=== PATIENT | female | born 1980 | race Caucasian/White ===

== ENCOUNTER 2017-08-24 16:39 | Emergency (ER) | payer BC, OTHER ==
--- NOTE | 2017-08-24 17:45 | EDM.PDOC ---
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 [place], says it feels like "my heart is pounding in my chest" and "my fingers are in my head" HR 77 despite c/o palpitations EKG with SR [address] changes began 10a yesterday Generalized Pain Score (Numeric/FACES): 3 - Related Data Allergies Allergy/AdvReac Type Severity Reaction Status Date / Time cephalexin monohydrate Allergy Rash Verified 08/24/17 17:05 [From Keflex] Home Meds: Home Meds Acetaminophen [Tylenol Extra Strength] 1,000 mg PO Q4HR PRN 07/12/15 [History] Cholecalciferol (Vitamin D3) [Vitamin D3] 10,000 unit PO DAILY 07/12/15 [History ] Cyanocobalamin (Vitamin B12) [Vitamin B12] 1,000 mcg PO DAILY 07/12/15 [History] Ibuprofen [Motrin] 800 mg PO QID PRN 07/12/15 [History] Milnacipran HCl [Savella] 12.5 mg PO BID 07/12/15 [History] Multivitamin [Multivitamins] 1 each PO DAILY 07/12/15 [History] Thyroid [Sneads Thyroid] 180 mg PO DAILY 07/12/15 [History] Tolterodine [Detrol LA 24 Hr] 2 mg PO DAILY 07/12/15 [History] Vit B Cmplx 3/Fa/Vit C/Biotin [Brionna-Amee Rx Tablet] 1 each PO DAILY 07/12/15 [ History] Past Medical History Other Cardiovascular History: 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 Musculoskeletal History: RT KNEE PAIN Psychiatric History: Reports: Anxiety Endocrine/Metabolic History: Reports: Hypothyroidism - Past Surgical History HEENT Surgical History: Reports: Tonsillectomy GI Surgical History: Reports: Cholecystectomy, Other (See Below) Social & Family History - Family History Family Medical History: Noncontributory - Tobacco Use Smoking Status *Q: Never Smoker Second Hand Smoke Exposure: No - Caffeine Use Caffeine Use: Reports: None - Recreational Drug Use Recreational Drug Use: No ED ROS GENERAL - Review of Systems Review Of Systems: See Below Constitutional: Reports: Fatigue, Other (did not get flu vax). Denies: Fever, Chills HEENT: Reports: No Symptoms Respiratory: Reports: No Symptoms Cardiovascular: Reports: Palpitations Endocrine: Reports: No Symptoms GI/Abdominal: Reports: No Symptoms : Reports: No Symptoms Musculoskeletal: Reports: No Symptoms Skin: Reports: No Symptoms Neurological: Reports: No Symptoms Psychiatric: Reports: No Symptoms Hematologic/Lymphatic: Reports: No Symptoms Immunologic: Reports: No Symptoms ED EXAM, GENERAL - Physical Exam Exam: See Below Exam Limited By: No Limitations General Appearance: Alert, WD/WN, No Apparent Distress, Other (pleasant, alert, nontoxic, appears tired) Ears: Normal External Exam, Normal Canal, Hearing Grossly Normal Nose: Normal Inspection, Normal Mucosa, No Blood Throat/Mouth: Normal Inspection, Normal Lips, Normal Teeth, Normal Gums, Normal Oropharynx, Normal Voice, No Airway Compromise Head: Atraumatic, Normocephalic Neck: Normal Inspection, Supple, Non-Tender, Full Range of Motion, Other ( thyroid wnl) Respiratory/Chest: No Respiratory Distress, Lungs Clear, Normal Breath Sounds, No Accessory Muscle Use, Chest Non-Tender Cardiovascular: Regular Rate, Rhythm, No Edema, No Gallop, No JVD, No Murmur, No Rub GI/Abdominal: Soft, Non-Tender, No Distention, No Mass, Other (obese) Back Exam: Normal Inspection, Full Range of Motion, NT Extremities: Other (trace edema b/l) Neurological: Alert, Oriented, CN II-XII Intact, Normal Cognition, No Motor/ Sensory Deficits Psychiatric: Normal Affect, Normal Mood Skin Exam: Warm, Dry, Intact, Normal Color, No Rash Lymphatic: No Adenopathy Course - Vital Signs Last Recorded V/S: Last Vital Signs Temp 36.6 C 08/24/17 16:45 Pulse 75 08/24/17 16:45 Resp 16 08/24/17 16:45 BP 118/52 L 08/24/17 17:30 Pulse Ox 100 08/24/17 16:45 - Orders/Labs/Meds Orders: Active Orders 24 hr Category Date Time Status EKG Documentation Completion [RC] ASDIRECTED Care 12/10/17 17:10 Active EKG 12 Lead [EK] Routine Ther 08/24/17 17:09 Ordered Labs: Laboratory Tests 08/24/17 08/24/17 08/24/17 Range/Units 17:35 17:35 17:35 WBC 8.7 (4.5-12.0) X10-3/uL RBC 4.76 (3.23-5.20) x10(6)uL Hgb 12.2 (11.5-15.5) g/dL Hct 37.0 (30.0-51.3) % MCV 77.7 L (80-96) fL MCH 25.7 L (27.7-33.6) pg MCHC 33.1 (32.2-35.4) g/dL RDW 13.6 (11.5-15.5) % Plt Count 245 (125-369) X10(3)uL MPV 8.1 (7.4-10.4) fL Neut % (Auto) 57.1 (46-82) % Lymph % (Auto) 31.1 (13-37) % [place] % (Auto) 7.8 (4-12) % Eos % (Auto) 2 (1.0-5.0) % Baso % (Auto) 2 (0-2) % Neut # (Auto) 4.9 (1.6-8.3) # Lymph # (Auto) 2.7 (0.6-5.0) # [place] # (Auto) 0.7 (0.0-1.3) # Eos # (Auto) 0.2 (0.0-0.8) # Baso # (Auto) 0.1 (0.0-0.2) # Sodium 143 (135-145) mmol/L Potassium 3.6 (3.5-5.3) mmol/L Chloride 111 H (100-110) mmol/L Carbon Dioxide 25 (21-32) mmol/L BUN 17 (7-18) mg/dL Creatinine 0.7 (0.55-1.02) mg/dL Est Cr Clr Drug Dosing 117.84 mL/min Estimated GFR (MDRD) > 60 (>60) BUN/Creatinine Ratio 24.3 H (9-20) Glucose 104 (80-116) mg/dL Calcium 8.2 L (8.6-10.2) mg/dL Total Bilirubin 0.3 (0.1-1.3) mg/dL AST 11 (5-25) IU/L ALT 14 (12-36) U/L Alkaline Phosphatase 53 L (56-112) IU/L Troponin I < 0.017 L (<0.017-0.056) ng/mL C-Reactive Protein 1.5 H (0.5-0.9) mg/dL Total Protein 6.2 (6.0-8.0) g/dL Albumin 3.1 L (3.5-5.2) g/dL Globulin 3.1 g/dL Albumin/Globulin Ratio 1.0 TSH, Ultra Sensitive 6.29 H (0.36-3.74) IU/mL - Re-Assessments/Exams Free Text/Narrative Re-Assessment/Exam: 08/24/17 18:34 labs neg, no tachycardia, remains quite tired, will keep her off work tonight, not due to work until 10p tomorrow Departure - Departure Time of Disposition: 18:34 Disposition: Home, Self-Care 01 Condition: Good Clinical Impression: Palpitations, Exhaustion Instructions: Fatigue Referrals: PCP,None [Ordering Only Provider] - Forms: ED Department Discharge Additional Instructions: Rest for the next 24 hours. See your doctor in 2 days. Return to ED if you are feeling worse. Call your Physician or Return to Emergency Department if: * Your condition worsens in any way. * You develop fever greater than 100.4. * You have vomitting that does not stop with medications. * You have pain that is not controlled with medications. - My Orders Last 24 Hours: My Active Orders 08/24/17 17:09 EKG 12 Lead [EK] Routine 08/24/17 17:10 EKG Documentation Completion [RC] ASDIRECTED - Assessment/Plan Last 24 Hours: My Active Orders 08/24/17 17:09 EKG 12 Lead [EK] Routine 08/24/17 17:10 EKG Documentation Completion [RC] ASDIRECTED
[2017-08-24 19:00] VITALS: BP 110/72
== END 2017-08-24 18:40 | disposition home or self-care (01) ==
LOC: FB.ED 16:39
DX: R00.2 Palpitations (principal); R53.83 Other fatigue; E03.9 Hypothyroidism, unspecified; Z88.1 Allergy status to other antibiotic agents; Z79.899 Other long term (current) drug therapy
CPT/HCPCS: 36415; 80053; 84443; 84484; 85025; 86140; 93005; 99284

== ENCOUNTER 2018-12-17 21:05 | Observation (INO) | payer OTHER ==
--- NOTE | 2018-12-17 21:20 | EDM.PDOC ---
ED HPI GENERAL MEDICAL PROBLEM - General Stated Complaint: SOB Time Seen by Provider: 12/17/18 21:05 Source of Information: Reports: Patient, Family History Limitations: Reports: Respiratory Distress, Uncooperative - History of Present Illness INITIAL COMMENTS - FREE TEXT/NARRATIVE: 38 y.o.w.f with morbid obesity >455 lbs, walked to the ED with her friend due to SOB with sudden onset. Pt's pulse ox was 99% on RA. her symptoms are worse in supine position, better in a sitting. Pt denied H/O PE. Has no Chest pain. No N/V/D or dizziness, denies CO exposure. Denies other acute medical issues. BP 155/76 RR 20 Pulse ox 97% on RA Temp 36.8 Pulse 84 BPM. Onset Date: 12/17/18 Onset Time: 16:00 Duration: Hour(s):, Waxing/Waning Location: Reports: Chest Quality: Reports: Other (SOB) Severity: Moderate Improves with: Reports: Rest (and sitting up) Worsens with: Reports: Other (supine position), Movement Context: Reports: Other (morbid obese) Associated Symptoms: Reports: Shortness of Breath, Weakness chest Pain Score (Numeric/FACES): 1 - Related Data Allergies Allergy/AdvReac Type Severity Reaction Status Date / Time bupropion [From Wellbutrin] Allergy Anxiety Verified 12/17/18 21:24 cephalexin monohydrate Allergy Rash Verified 08/24/17 17:05 [From Keflex] methylphenidate Allergy Anxiety Verified 12/17/18 21:24 [From Ritalin] trazodone Allergy Anxiety Verified 12/17/18 21:24 Home Meds: Home Meds Acetaminophen [Tylenol Extra Strength] 1,000 mg PO Q4HR PRN 07/12/15 [History] Cholecalciferol (Vitamin D3) [Vitamin D3] 10,000 unit PO DAILY 07/12/15 [History ] Ibuprofen [Motrin] 800 mg PO QID PRN 07/12/15 [History] Thyroid [Farrell Thyroid] 180 mg PO DAILY 07/12/15 [History] Escitalopram [Lexapro] 20 mg PO DAILY 12/17/18 [History] Gabapentin [Neurontin] 300 mg PO TID 12/17/18 [History] traMADol [Ultram] 50 mg PO ASDIRECTED PRN 12/17/18 [History] Albuterol Sulfate [Albuterol Sulfate Hfa] 1 puff IH QID PRN #1 hfa.aer.ad [Rx] Azithromycin 500 mg PO DAILY #3 tablet 12/19/18 [Rx] predniSONE 20 mg PO BID #10 tab 12/19/18 [Rx] Past Medical History 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 Musculoskeletal History: RT KNEE PAIN Psychiatric History: Reports: Anxiety Endocrine/Metabolic History: Reports: Hypothyroidism - Past Surgical History HEENT Surgical History: Reports: Tonsillectomy GI Surgical History: Reports: Cholecystectomy, Other (See Below) Social & Family History - Family History Family Medical History: Noncontributory - Caffeine Use Caffeine Use: Reports: None ED ROS GENERAL - Review of Systems Review Of Systems: See Below Constitutional: Reports: Weakness HEENT: Reports: No Symptoms Respiratory: Reports: Shortness of Breath Cardiovascular: Reports: No Symptoms Endocrine: Reports: No Symptoms GI/Abdominal: Reports: No Symptoms : Reports: No Symptoms Musculoskeletal: Reports: No Symptoms Skin: Reports: No Symptoms Neurological: Reports: No Symptoms Psychiatric: Reports: No Symptoms Hematologic/Lymphatic: Reports: No Symptoms Immunologic: Reports: No Symptoms ED EXAM, GENERAL - Physical Exam Exam: See Below Exam Limited By: Physical Impairment General Appearance: Alert, WD/WN, Obese (morbid obese >455 lbs) Eye Exam: Bilateral Eye: Normal Inspection Ears: Normal External Exam Ear Exam: Bilateral Ear: Auricle Normal Nose: Normal Inspection, Normal Mucosa, No Blood Throat/Mouth: Normal Inspection, Normal Lips, Normal Voice, No Airway Compromise Head: Atraumatic, Normocephalic Neck: Normal Inspection, Supple, Non-Tender, Full Range of Motion Respiratory/Chest: No Respiratory Distress, Lungs Clear, Normal Breath Sounds, Chest Non-Tender, Respiratory Distress Cardiovascular: Normal Peripheral Pulses, Regular Rate, Rhythm, No Edema, No Gallop, No JVD, No Murmur, No Rub Peripheral Pulses: 1+: Brachial (L) GI/Abdominal: Normal Bowel Sounds, Soft, Non-Tender, No Organomegaly, No Distention, No Abnormal Bruit, No Mass, Pelvis Stable (Female) Exam: Deferred Rectal (Female) Exam: Deferred Back Exam: Normal Inspection, Full Range of Motion Extremities: Normal Inspection, Normal Range of Motion, Non-Tender Neurological: Alert, Oriented, CN II-XII Intact, Normal Cognition, Normal Gait Psychiatric: Normal Affect, Normal Mood Skin Exam: Warm, Dry, Intact, Normal Color, No Rash Lymphatic: No Adenopathy EKG INTERPRETATION EKG Date: 12/17/18 Time: 21:00 Rhythm: NSR Rate (Beats/Min): 95 [place]: Normal P-Wave: Present QRS: Normal ST-T: Normal QT: Normal Comparison: NA - No Prior EKG Course - Vital Signs Text/Narrative:: 38 y.o.w.f with morbid obesity >455 lbs, walked to the ED with her friend due to SOB with sudden onset. Pt's pulse ox was 99% on RA. her symptoms are worse in supine position, better in a sitting. Pt denied H/O PE. Has no Chest pain. No N/V/D or dizziness, denies CO exposure. Denies other acute medical issues. BP 155/76 RR 20 Pulse ox 97% on RA Temp 36.8 Pulse 84 BPM. PE: Morbid obese WF with SOB Imaging: CXR: Possible early pneumonia. Angio CT Chest: Poor study due to body size, PE? infectious bronchiolitis Labs: CBC no except MCV was 79.9 D Dimer 1.49 ABG: pH 7.41 pCO2 37 pO2 74 Biocarb 25, BMP neg except Ca 8.0 BNP 161 Bcx reults pending Impression: Infections bronchiolitis, Possible PE (poor study due to body size) , Morbid obesity, hypoxemia, hypoxemia. Tx: Lovenox, Levaquin, O2 by NC Reexam: Improved Plan: Admit to [facility]. Last Recorded V/S: Last Vital Signs Temp 37.1 C 12/19/18 08:00 Pulse 104 H 12/19/18 08:00 Resp 18 12/19/18 08:00 BP 118/64 12/19/18 08:00 Pulse Ox 96 12/19/18 08:00 - Orders/Labs/Meds Labs: Laboratory Tests 12/17/18 12/17/18 12/17/18 Range/Units 21:42 21:42 21:42 WBC 6.3 (4.5-12.0) X10-3/uL RBC 4.77 (3.23-5.20) x10(6)uL Hgb 12.6 (11.5-15.5) g/dL Hct 37.7 (30.0-51.3) % MCV 79.0 L (80-96) fL MCH 26.4 L (27.7-33.6) pg MCHC 33.3 (32.2-35.4) g/dL RDW 13.3 (11.5-15.5) % Plt Count 206 (125-369) X10(3)uL MPV 7.7 (7.4-10.4) fL Add Manual Diff Yes Neutrophils % (Manual) 62 (46-82) % Band Neutrophils % 4 (0-6) % Lymphocytes % (Manual) 23 (13-37) % Monocytes % (Manual) 8 (4-12) % Eosinophils % (Manual) 3 (0-5) % PT (8.7-11.1) INR (0.89-1.13) D-Dimer, Quantitative 1.49 H (0.0-0.59) mg/LFEU ABG pH (7.35-7.45) ABG pCO2 (35-45) mmHg ABG pO2 (83-108) mmHg ABG HCO3 (22-26) mmol/L ABG O2 Saturation (96-97) % ABG Base Excess (-2-2) Timothy Test O2 Delivery Device Oxygen Flow Rate L Sodium 143 (135-145) mmol/L Potassium 3.9 (3.5-5.3) mmol/L Chloride 108 (100-110) mmol/L Carbon Dioxide 28 (21-32) mmol/L BUN 7 D (7-18) mg/dL Creatinine 0.8 (0.55-1.02) mg/dL Est Cr Clr Drug Dosing TNP Estimated GFR (MDRD) > 60 (>60) BUN/Creatinine Ratio 8.8 L (9-20) Glucose 104 (80-116) mg/dL Calcium 8.0 L (8.6-10.2) mg/dL Troponin I (<0.017-0.056) ng/mL NT-Pro-B Natriuret Pep (<=125) pg/mL 12/17/18 12/17/18 12/17/18 Range/Units 21:42 21:42 21:42 WBC (4.5-12.0) X10-3/uL RBC (3.23-5.20) x10(6)uL Hgb (11.5-15.5) g/dL Hct (30.0-51.3) % MCV (80-96) fL MCH (27.7-33.6) pg MCHC (32.2-35.4) g/dL RDW (11.5-15.5) % Plt Count (125-369) X10(3)uL MPV (7.4-10.4) fL Add Manual Diff Neutrophils % (Manual) (46-82) % Band Neutrophils % (0-6) % Lymphocytes % (Manual) (13-37) % Monocytes % (Manual) (4-12) % Eosinophils % (Manual) (0-5) % PT 9.4 (8.7-11.1) INR 0.97 (0.89-1.13) D-Dimer, Quantitative (0.0-0.59) mg/LFEU ABG pH (7.35-7.45) ABG pCO2 (35-45) mmHg ABG pO2 (83-108) mmHg ABG HCO3 (22-26) mmol/L ABG O2 Saturation (96-97) % ABG Base Excess (-2-2) Timothy Test O2 Delivery Device Oxygen Flow Rate L Sodium (135-145) mmol/L Potassium (3.5-5.3) mmol/L Chloride (100-110) mmol/L Carbon Dioxide (21-32) mmol/L BUN (7-18) mg/dL Creatinine (0.55-1.02) mg/dL Est Cr Clr Drug Dosing Estimated GFR (MDRD) (>60) BUN/Creatinine Ratio (9-20) Glucose (80-116) mg/dL Calcium (8.6-10.2) mg/dL Troponin I < 0.017 L (<0.017-0.056) ng/mL NT-Pro-B Natriuret Pep 161 H (<=125) pg/mL 12/17/18 Range/Units 22:48 WBC (4.5-12.0) X10-3/uL RBC (3.23-5.20) x10(6)uL Hgb (11.5-15.5) g/dL Hct (30.0-51.3) % MCV (80-96) fL MCH (27.7-33.6) pg MCHC (32.2-35.4) g/dL RDW (11.5-15.5) % Plt Count (125-369) X10(3)uL MPV (7.4-10.4) fL Add Manual Diff Neutrophils % (Manual) (46-82) % Band Neutrophils % (0-6) % Lymphocytes % (Manual) (13-37) % Monocytes % (Manual) (4-12) % Eosinophils % (Manual) (0-5) % PT (8.7-11.1) INR (0.89-1.13) D-Dimer, Quantitative (0.0-0.59) mg/LFEU ABG pH 7.41 (7.35-7.45) ABG pCO2 37 (35-45) mmHg ABG pO2 74 L (83-108) mmHg ABG HCO3 23 (22-26) mmol/L ABG O2 Saturation 95 L (96-97) % ABG Base Excess -1.1 (-2-2) Timothy Test Passed O2 Delivery Device Nasal cannula Oxygen Flow Rate 0 L Sodium (135-145) mmol/L Potassium (3.5-5.3) mmol/L Chloride (100-110) mmol/L Carbon Dioxide (21-32) mmol/L BUN (7-18) mg/dL Creatinine (0.55-1.02) mg/dL Est Cr Clr Drug Dosing Estimated GFR (MDRD) (>60) BUN/Creatinine Ratio (9-20) Glucose (80-116) mg/dL Calcium (8.6-10.2) mg/dL Troponin I (<0.017-0.056) ng/mL NT-Pro-B Natriuret Pep (<=125) pg/mL Meds: Medications Discontinued Medications Generic Name Dose Route Start Last Admin Trade Name Freq PRN Reason Stop Dose Admin Acetaminophen 1,000 mg 12/18/18 11:34 Tylenol Extra Strength PO Q4H PRN Pain Albuterol/Ipratropium 3 ml 12/18/18 11:45 12/19/18 05:27 Duoneb 3.0-0.5 Mg/3 Ml NEB 3 ml Q6H EILEEN Administration Enoxaparin Sodium 225 mg 12/17/18 23:30 12/18/18 00:22 Lovenox SUBCUT 12/17/18 23:31 225 mg ONETIME ONE Administration Enoxaparin Sodium Confirm 12/18/18 00:11 12/18/18 00:21 Lovenox Administered 12/18/18 00:12 Not Given Dose 200 mg .ROUTE .STK-MED ONE Enoxaparin Sodium Confirm 12/18/18 00:11 12/18/18 00:22 Lovenox Administered 12/18/18 00:12 Not Given Dose 30 mg .ROUTE .STK-MED ONE Enoxaparin Sodium 225 mg 12/18/18 01:00 12/18/18 00:53 Lovenox SUBCUT Not Given Q12H EILEEN Escitalopram Oxalate 20 mg 12/18/18 21:00 12/18/18 21:04 Lexapro PO 20 mg BEDTIME EILEEN Administration Gabapentin 300 mg 12/18/18 14:00 12/19/18 09:23 Neurontin PO 300 mg TID EILEEN Administration Levofloxacin/Dextrose 750 mg/ 150 mls @ 100 mls/hr 12/18/18 05:36 12/18/18 06 :51 Premix IV 12/18/18 07:05 100 mls/hr ONETIME ONE Administration Levofloxacin/Dextrose Confirm 12/18/18 06:42 12/18/18 06:56 Levaquin In D5w 750 Mg/150 Ml Administered 12/18/18 06:43 Not Given Dose 150 mls @ as directed IV .STK-MED ONE Ibuprofen 800 mg 12/18/18 11:34 12/19/18 04:22 Motrin PO 800 mg QID PRN Administration Pain Iopamidol 150 ml 12/17/18 23:56 Isovue-370 (76%) IV 12/17/18 23:57 ONETIME ONE Methylprednisolone Sodium Succinate 125 mg 12/18/18 11:15 12/19/18 02:57 Solu-Medrol IVPUSH 125 mg Q8H EILEEN Administration Non-Formulary Medication 10,000 unit 12/19/18 09:00 Cholecalciferol (Vitamin D3) [Vitamin D3] PO DAILY EILEEN Sodium Chloride 10 ml 12/18/18 06:55 12/19/18 03:02 Saline Flush FLUSH 10 ml ASDIRECTED PRN Administration IV Use Thyroid 180 mg 12/18/18 21:00 12/18/18 21:04 Farrell Thyroid PO 180 mg BEDTIME EILEEN Administration Tramadol HCl 50 mg 12/18/18 11:34 Ultram PO TID PRN Pain Departure - Departure Time of Disposition: 23:00 Disposition: Still A Patient 30 Condition: Fair Clinical Impression: Bronchiolitis
[2018-12-17] MEDS ORDERED: Enoxaparin 150 MG/1 ML Syringe SUBCUT ONE (23:30)
[2018-12-17] MEDS ORDERED: Iopamidol 755 MG/ML 150 ML Bottle IV ONE (23:56)
[2018-12-18] MEDS ORDERED: Enoxaparin 30 MG/0.3 ML Syringe ONE (00:11)
[2018-12-18] MEDS ORDERED: Enoxaparin 100 MG/1 ML Syringe ONE (00:11)
[2018-12-18] MEDS ORDERED: Enoxaparin 40 MG/0.4 ML Syringe SUBCUT SCH (01:00)
[2018-12-18] MEDS ORDERED: Levofloxacin/Dextrose 5%-Water 750 MG in Premix Bag 1 BAG IV ONE (05:36)
[2018-12-18] MEDS ORDERED: Levofloxacin/Dextrose 5%-Water 150 ML IV ONE (06:42)
--- NOTE | 2018-12-18 11:14 | PCM.HP ---
H&P History of Present Illness - General Date of Service: 12/18/18 Admit Problem/Dx: Admission Diagnosis/Problem Admission Diagnosis/Problem Hypoxemia Source of Information: Patient History Limitations: Reports: No Limitations - History of Present Illness Initial Comments - Free Text/Narative: Betty came to the ER with shortness of breath and cough for a few hours. Worse with laying down, better with sitting up. She also had a low-grade fever. She complains of no chest pain headache Nausea or vomiting. She is previously healthy with exception of obesity. chest Pain Score (Numeric/FACES): 1 - Related Data Allergies/Adverse Reactions: Allergies Allergy/AdvReac Type Severity Reaction Status Date / Time bupropion [From Wellbutrin] Allergy Anxiety Verified 12/17/18 21:24 cephalexin monohydrate Allergy Rash Verified 08/24/17 17:05 [From Keflex] methylphenidate Allergy Anxiety Verified 12/17/18 21:24 [From Ritalin] trazodone Allergy Anxiety Verified 12/17/18 21:24 Home Medications: Home Meds Acetaminophen [Tylenol Extra Strength] 1,000 mg PO Q4HR PRN 07/12/15 [History] Cholecalciferol (Vitamin D3) [Vitamin D3] 10,000 unit PO DAILY 07/12/15 [History ] Ibuprofen [Motrin] 800 mg PO QID PRN 07/12/15 [History] Thyroid [[place] Thyroid] 180 mg PO DAILY 07/12/15 [History] Escitalopram [Lexapro] 20 mg PO DAILY 12/17/18 [History] Gabapentin [Neurontin] 300 mg PO TID 12/17/18 [History] traMADol [Ultram] 50 mg PO ASDIRECTED PRN 12/17/18 [History] Past Medical History Other Cardiovascular History: [employer] History: Reports: Musculoskeletal History: Reports: Fibromyalgia Other Musculoskeletal History: RT KNEE PAIN Psychiatric History: Reports: Anxiety Endocrine/Metabolic History: Reports: Hypothyroidism - Past Surgical History HEENT Surgical History: Reports: Tonsillectomy GI Surgical History: Reports: Cholecystectomy, Other (See Below) Social & Family History - Family History Family Medical History: Noncontributory - Tobacco Use Smoking Status *Q: Former Smoker Used Tobacco, but Quit: Yes Month/Year Tobacco Last Used: Sep Second Hand Smoke Exposure: Yes - Caffeine Use Caffeine Use: Reports: None Caffeine Use Comment: drinks an equivalent of 120-240mg of caffeine a day, especially at work - Alcohol Use Days Per Week of Alcohol Use: 2 Number of Drinks Per Day: 2 Total Drinks Per Week: 4 Date of Last Drink: 12/15/18 Time of Last Drink: 08:00 - Recreational Drug Use Recreational Drug Use: No H&P Review of Systems - Review of Systems: Review Of Systems: ROS reveals no pertinent complaints other than HPI. Exam - Exam Exam: See Below - Vital Signs Vital Signs: Last Vital Signs Temp 98.0 F 12/18/18 03:50 Pulse 70 12/18/18 03:50 Resp 16 12/18/18 03:50 BP 115/66 12/18/18 03:50 Pulse Ox 98 12/18/18 03:50 Weight: 202.665 kg - Exam General: Alert, Oriented, 4 HEENT: PERRLA, Hearing Intact, Mucosa Moist & [place], Nares Patent, Normal Nasal Septum, Posterior Pharynx Clear, Conjunctiva Clear, EOMI, EACs Clear, TMs Clear Neck: Supple, Trachea Midline, 2 Lungs: Normal Respiratory Effort, Rhonchi, Wheezing Cardiovascular: Regular Rate, Regular Rhythm GI/Abdominal Exam: Normal Bowel Sounds, Soft, Non-Tender, No Organomegaly, No Distention, No Abnormal Bruit, No Mass, Pelvis Stable (Female) Exam: Deferred Rectal (Female) Exam: Deferred Back Exam: Normal Inspection, Full Range of Motion, NT Extremities: Normal Inspection, Normal Range of Motion, Non-Tender, No Pedal Edema, Normal Capillary Refill Skin: Warm, Dry, Intact Neurological: Cranial Nerves Intact, Reflexes Equal Bilateral Neuro Extensive - Mental Status: Alert, Oriented x3, Normal Mood/Affect, Normal Cognition Neuro Extensive - Motor, Sensory, Reflexes: CN II-XII Intact, Normal Gait, Normal Reflexes Psychiatric: Alert, Normal Affect, Normal Mood - Patient Data Lab Results Last 24 hrs: Laboratory Results - last 24 hr 12/17/18 12/17/18 12/17/18 Range/Units 21:42 21:42 21:42 WBC 6.3 (4.5-12.0) X10-3/uL RBC 4.77 (3.23-5.20) x10(6)uL Hgb 12.6 (11.5-15.5) g/dL Hct 37.7 (30.0-51.3) % MCV 79.0 L (80-96) fL MCH 26.4 L (27.7-33.6) pg MCHC 33.3 (32.2-35.4) g/dL RDW 13.3 (11.5-15.5) % Plt Count 206 (125-369) X10(3)uL MPV 7.7 (7.4-10.4) fL Add Manual Diff Yes Neutrophils % (Manual) 62 (46-82) % Band Neutrophils % 4 (0-6) % Lymphocytes % (Manual) 23 (13-37) % Monocytes % (Manual) 8 (4-12) % Eosinophils % (Manual) 3 (0-5) % PT (8.7-11.1) INR (0.89-1.13) D-Dimer, Quantitative 1.49 H (0.0-0.59) mg/LFEU ABG pH (7.35-7.45) ABG pCO2 (35-45) mmHg ABG pO2 (83-108) mmHg ABG HCO3 (22-26) mmol/L ABG O2 Saturation (96-97) % ABG Base Excess (-2-2) Timothy Test O2 Delivery Device Oxygen Flow Rate L Sodium 143 (135-145) mmol/L Potassium 3.9 (3.5-5.3) mmol/L Chloride 108 (100-110) mmol/L Carbon Dioxide 28 (21-32) mmol/L BUN 7 D (7-18) mg/dL Creatinine 0.8 (0.55-1.02) mg/dL Est Cr Clr Drug Dosing TNP Estimated GFR (MDRD) > 60 (>60) BUN/Creatinine Ratio 8.8 L (9-20) Glucose 104 (80-116) mg/dL Calcium 8.0 L (8.6-10.2) mg/dL Troponin I (<0.017-0.056) ng/mL NT-Pro-B Natriuret Pep (<=125) pg/mL 12/17/18 12/17/18 12/17/18 Range/Units 21:42 21:42 21:42 WBC (4.5-12.0) X10-3/uL RBC (3.23-5.20) x10(6)uL Hgb (11.5-15.5) g/dL Hct (30.0-51.3) % MCV (80-96) fL MCH (27.7-33.6) pg MCHC (32.2-35.4) g/dL RDW (11.5-15.5) % Plt Count (125-369) X10(3)uL MPV (7.4-10.4) fL Add Manual Diff Neutrophils % (Manual) (46-82) % Band Neutrophils % (0-6) % Lymphocytes % (Manual) (13-37) % Monocytes % (Manual) (4-12) % Eosinophils % (Manual) (0-5) % PT 9.4 (8.7-11.1) INR 0.97 (0.89-1.13) D-Dimer, Quantitative (0.0-0.59) mg/LFEU ABG pH (7.35-7.45) ABG pCO2 (35-45) mmHg ABG pO2 (83-108) mmHg ABG HCO3 (22-26) mmol/L ABG O2 Saturation (96-97) % ABG Base Excess (-2-2) Timothy Test O2 Delivery Device Oxygen Flow Rate L Sodium (135-145) mmol/L Potassium (3.5-5.3) mmol/L Chloride (100-110) mmol/L Carbon Dioxide (21-32) mmol/L BUN (7-18) mg/dL Creatinine (0.55-1.02) mg/dL Est Cr Clr Drug Dosing Estimated GFR (MDRD) (>60) BUN/Creatinine Ratio (9-20) Glucose (80-116) mg/dL Calcium (8.6-10.2) mg/dL Troponin I < 0.017 L (<0.017-0.056) ng/mL NT-Pro-B Natriuret Pep 161 H (<=125) pg/mL 12/17/18 Range/Units 22:48 WBC (4.5-12.0) X10-3/uL RBC (3.23-5.20) x10(6)uL Hgb (11.5-15.5) g/dL Hct (30.0-51.3) % MCV (80-96) fL MCH (27.7-33.6) pg MCHC (32.2-35.4) g/dL RDW (11.5-15.5) % Plt Count (125-369) X10(3)uL MPV (7.4-10.4) fL Add Manual Diff Neutrophils % (Manual) (46-82) % Band Neutrophils % (0-6) % Lymphocytes % (Manual) (13-37) % Monocytes % (Manual) (4-12) % Eosinophils % (Manual) (0-5) % PT (8.7-11.1) INR (0.89-1.13) D-Dimer, Quantitative (0.0-0.59) mg/LFEU ABG pH 7.41 (7.35-7.45) ABG pCO2 37 (35-45) mmHg ABG pO2 74 L (83-108) mmHg ABG HCO3 23 (22-26) mmol/L ABG O2 Saturation 95 L (96-97) % ABG Base Excess -1.1 (-2-2) Timothy Test Passed O2 Delivery Device Nasal cannula Oxygen Flow Rate 0 L Sodium (135-145) mmol/L Potassium (3.5-5.3) mmol/L Chloride (100-110) mmol/L Carbon Dioxide (21-32) mmol/L BUN (7-18) mg/dL Creatinine (0.55-1.02) mg/dL Est Cr Clr Drug Dosing Estimated GFR (MDRD) (>60) BUN/Creatinine Ratio (9-20) Glucose (80-116) mg/dL Calcium (8.6-10.2) mg/dL Troponin I (<0.017-0.056) ng/mL NT-Pro-B Natriuret Pep (<=125) pg/mL Result Diagrams: 12/17/18 21:42 12/17/18 21:42 EKG INTERPRETATION Rhythm: NSR - Problem List (1) Bronchiolitis SNOMED Code(s): 1327091 ICD Code: J21.9 - ACUTE BRONCHIOLITIS, UNSPECIFIED Status: Acute Current Visit: Yes (2) Obese SNOMED Code(s): 589101906, 430386159 ICD Code: E66.9 - OBESITY, UNSPECIFIED Status: Acute Current Visit: Yes Qualifiers: Obesity type: due to excess calories Problem List Initiated/Reviewed/Updated: Yes Orders Last 24hrs: Active Orders 24 hr Category Date Time Status Patient Status [ADT] Routine ADT 12/18/18 00:47 Active Cardiac Monitoring [RC] CONTINUOUS Care 12/18/18 00:49 Active EKG Documentation Completion [RC] ASDIRECTED Care 12/17/18 21:18 Active Oxygen Therapy [RC] PRN Care 12/18/18 00:47 Active Pulse Oximetry [RC] CONTINUOUS Care 12/18/18 00:49 Active Up With Assistance [RC] ASDIRECTED Care 12/18/18 00:47 Active VTE/DVT Education [RC] Per Unit Routine Care 12/18/18 00:47 Active Vital Signs [RC] 00,04,08,12,16,20 Care 12/18/18 00:47 Active Heart Healthy Diet [DIET] Diet 12/18/18 Breakfast Active CXR [Chest 1V Frontal] [CR] Stat Exams 12/17/18 21:16 Taken CULTURE BLOOD [BC] Urgent Lab 12/18/18 06:15 Received CULTURE BLOOD [BC] Urgent Lab 12/18/18 06:30 Received Sodium Chloride 0.9% [Saline Flush] Med 12/18/18 06:55 Active 10 ml FLUSH ASDIRECTED PRN methylPREDNISolone Sod Succ [Solu-MEDROL] Med 12/18/18 11:15 Ordered 125 mg IVPUSH Q8H Blood Culture x2 Reflex Set [OM.PC] Urgent Oth 12/18/18 05:34 Ordered Resuscitation Status Routine Resus Stat 12/18/18 00:47 Ordered EKG 12 Lead [EK] Routine Ther 12/17/18 21:18 Ordered Medication Orders Sodium Chloride (Saline Flush) 10 ml FLUSH ASDIRECTED PRN PRN Reason: IV Use Assessment/Plan Comment:: The CT did not show any PE. It did show some groundglass appearance possibly due to bronchiolitis. I've elected to continue Levaquin, and will do Solu- Medrol and incentive spirometry. Will continue SVNs, keep her through today and discharge tomorrow.DC telemetry
[2018-12-18] MEDS: methylPREDNISolone Sodium Succinate 125 MG/2 ML SDV IVPUSH SCH ×2 (11:20→19:20)
[2018-12-18] MEDS: Sodium Chloride 0.9% 10 ML Syringe FLUSH PRN ×2 (11:24→19:23)
[2018-12-18] MEDS ORDERED: Acetaminophen 500 MG Tab PO PRN (11:34)
[2018-12-18] MEDS ORDERED: traMADol 50 MG Tab PO PRN (11:34)
[2018-12-18] MEDS: Albuterol/Ipratropium 3.0-0.5 MG/3 ML Neb Soln NEB SCH ×3 (12:37→23:19)
[2018-12-18] MEDS: Ibuprofen 800 MG Tab PO PRN (12:51)
[2018-12-18] MEDS: Gabapentin 300 MG Cap PO SCH ×2 (13:01→21:41)
[2018-12-18] MEDS ORDERED: Escitalopram 20 MG Tab PO SCH (21:00)
[2018-12-19] MEDS: methylPREDNISolone Sodium Succinate 125 MG/2 ML SDV IVPUSH SCH (02:57)
[2018-12-19] MEDS: Sodium Chloride 0.9% 10 ML Syringe FLUSH PRN (03:02)
[2018-12-19] MEDS: Ibuprofen 800 MG Tab PO PRN (04:22)
[2018-12-19] MEDS: Albuterol/Ipratropium 3.0-0.5 MG/3 ML Neb Soln NEB SCH (05:27)
--- NOTE | 2018-12-19 08:41 | PCM.PN ---
- General Info Date of Service: 12/19/18 Subjective Update: Feels much better - Review of Systems General: Reports: No Symptoms HEENT: Reports: No Symptoms Pulmonary: Reports: No Symptoms Cardiovascular: Reports: No Symptoms - Patient Data Vitals - Most Recent: Last Vital Signs Temp 97.5 F 12/19/18 04:00 Pulse 90 12/19/18 05:37 Resp 18 12/19/18 04:00 BP 120/75 12/19/18 04:00 Pulse Ox 95 12/19/18 04:00 Weight - Most Recent: 202.665 kg Dread Results Last 24 Hours: Microbiology 12/18/18 06:30 Aerobic Blood Culture - Preliminary Blood - Venous - Lab Draw NO GROWTH AFTER 1 DAY Anaerobic Blood Culture - Preliminary NO GROWTH AFTER 1 DAY 12/18/18 06:15 Aerobic Blood Culture - Preliminary Blood - Venous NO GROWTH AFTER 1 DAY Anaerobic Blood Culture - Preliminary NO GROWTH AFTER 1 DAY Med Orders - Current: Current Medications Acetaminophen (Tylenol Extra Strength) 1,000 mg PO Q4H PRN PRN Reason: Pain Albuterol/Ipratropium (Duoneb 3.0-0.5 Mg/3 Ml) 3 ml NEB Q6H [facility] Last Admin: 12/19/18 05:27 Dose: 3 ml Escitalopram Oxalate (Lexapro) 20 mg PO BEDTIME [facility] Last Admin: 12/18/18 21:04 Dose: 20 mg Gabapentin (Neurontin) 300 mg PO TID [facility] Last Admin: 12/18/18 21:41 Dose: 300 mg Ibuprofen (Motrin) 800 mg PO QID PRN PRN Reason: Pain Last Admin: 12/19/18 04:22 Dose: 800 mg Methylprednisolone Sodium Succinate (Solu-Medrol) 125 mg IVPUSH Q8H [facility] Last Admin: 12/19/18 02:57 Dose: 125 mg Non-Formulary Medication (Cholecalciferol (Vitamin D3) [Vitamin D3]) 10,000 unit PO DAILY [facility] Sodium Chloride (Saline Flush) 10 ml FLUSH ASDIRECTED PRN PRN Reason: IV Use Last Admin: 12/19/18 03:02 Dose: 10 ml Thyroid ([place] Thyroid) 180 mg PO BEDTIME [facility] Last Admin: 12/18/18 21:04 Dose: 180 mg Tramadol HCl (Ultram) 50 mg PO TID PRN PRN Reason: Pain Discontinued Medications Enoxaparin Sodium (Lovenox) 225 mg SUBCUT ONETIME ONE Stop: 12/17/18 23:31 Last Admin: 12/18/18 00:22 Dose: 225 mg Enoxaparin Sodium (Lovenox) Confirm Administered Dose 200 mg .ROUTE .STK-MED ONE Stop: 12/18/18 00:12 Last Admin: 12/18/18 00:21 Dose: Not Given Enoxaparin Sodium (Lovenox) Confirm Administered Dose 30 mg .ROUTE .STK-MED ONE Stop: 12/18/18 00:12 Last Admin: 12/18/18 00:22 Dose: Not Given Enoxaparin Sodium (Lovenox) 225 mg SUBCUT Q12H [facility] Last Admin: 12/18/18 00:53 Dose: Not Given Levofloxacin/Dextrose 750 mg/ (Premix) 150 mls @ 100 mls/hr IV ONETIME ONE Stop: 12/18/18 07:05 Last Admin: 12/18/18 06:51 Dose: 100 mls/hr Levofloxacin/Dextrose (Levaquin In D5w 750 Mg/150 Ml) Confirm Administered Dose 150 mls @ as directed IV .STK-MED ONE Stop: 12/18/18 06:43 Last Admin: 12/18/18 06:56 Dose: Not Given Iopamidol (Isovue-370 (76%)) 150 ml IV ONETIME ONE Stop: 12/17/18 23:57 - Exam Quality Assessment: No: Supplemental Oxygen General: Alert, Oriented HEENT: Pupils Equal, Pupils Reactive, EOMI, Mucous Membr. Moist/[place] Neck: Supple Lungs: Clear to Auscultation, Normal Respiratory Effort Cardiovascular: Regular Rate, Regular Rhythm GI/Abdominal Exam: Normal Bowel Sounds, Soft, Non-Tender, No Organomegaly, No Distention, No Abnormal Bruit, No Mass, Pelvis Stable (Female) Exam: Normal External Exam, Normal Speculum Exam, Normal Bimanual Exam Back Exam: Normal Inspection, Full Range of Motion Extremities: Normal Inspection, Normal Range of Motion, Non-Tender, No Pedal Edema, Normal Capillary Refill Skin: Warm, Dry, Intact Wound/Incisions: Healing Well Neurological: No New Focal Deficit Psy/Mental Status: Alert, Normal Affect, Normal Mood - Problem List & Annotations (1) Bronchiolitis SNOMED Code(s): 2023307 Code(s): J21.9 - ACUTE BRONCHIOLITIS, UNSPECIFIED Status: Acute Current Visit: Yes (2) Obese SNOMED Code(s): 167545439, 896088433 Code(s): E66.9 - OBESITY, UNSPECIFIED Status: Acute Current Visit: Yes Qualifiers: Obesity type: due to excess calories - Problem List Review Problem List Initiated/Reviewed/Updated: Yes - My Orders Last 24 Hours: My Active Orders 12/18/18 11:15 methylPREDNISolone Sod Succ [Solu-MEDROL] 125 mg IVPUSH Q8H 12/18/18 11:33 RT Aerosol Therapy [RC] ASDIRECTED RT Incentive Spirometry [RC] Q4HWA 12/18/18 11:34 Acetaminophen [Tylenol Extra Strength] 1,000 mg PO Q4H PRN Ibuprofen [Motrin] 800 mg PO QID PRN traMADol [Ultram] 50 mg PO TID PRN 12/18/18 11:45 Albuterol/Ipratropium [DuoNeb 3.0-0.5 MG/3 ML] 3 ml NEB Q6H 12/18/18 14:00 Gabapentin [Neurontin] 300 mg PO TID 12/18/18 21:00 Escitalopram [Lexapro] 20 mg PO BEDTIME Thyroid [[place] Thyroid] 180 mg PO BEDTIME 12/19/18 09:00 Cholecalciferol (Vitamin D3) [Vitamin D3] 10,000 unit PO DAILY - Plan Plan:: DC home on Zpak,Prednisone and Por Air
[2018-12-19] MEDS ORDERED: Non-Formulary Medication 1 Each (Cholecalciferol (Vitamin D3) [Vitamin D3] 10,000 UNIT) PO SCH (09:00)
[2018-12-19] MEDS: Gabapentin 300 MG Cap PO SCH (09:23)
[2018-12-19 11:17] VITALS: BP 118/64
== END 2018-12-19 09:50 | disposition home or self-care (01) ==
LOC: FB.ED 21:05 → FB.MS 12-18 00:53
PROVIDERS: ADMIT Emergency Medicine; ATTEND Family Medicine
DX: J21.9 Acute bronchiolitis, unspecified (principal); E66.01 Morbid (severe) obesity due to excess calories; Z68.44 Body mass index [BMI] 60.0-69.9, adult; E03.9 Hypothyroidism, unspecified; Z87.891 Personal history of nicotine dependence; Z79.899 Other long term (current) drug therapy; Z88.1 Allergy status to other antibiotic agents
CPT/HCPCS: 36415; 36600; 71045; 71275; 80048; 82803; 83880; 84484; 85025; 85379; 85610; 87040; 93005; 94150; 94640; 96365; 96372; 96375; 96376; 99285-25; A9270-GY; G0378; J1650; J1956; J2930; J7620-GY

== ENCOUNTER 2022-12-20 19:27 | Emergency (ER) | payer BC ==
[2022-12-20 20:57] VITALS: BP 142/78; PULSE 76
== END 2022-12-20 21:00 | disposition home or self-care (01) ==
LOC: FB.ED 19:27
DX: M79.672 Pain in left foot (principal); E03.9 Hypothyroidism, unspecified; Z88.1 Allergy status to other antibiotic agents; Z88.5 Allergy status to narcotic agent; Z88.8 Allergy status to other drugs, medicaments and biological substances; Z79.899 Other long term (current) drug therapy
CPT/HCPCS: 73630-LT; 99283